=== PATIENT | female | born 1980 | race Caucasian/White ===

== ENCOUNTER 2019-08-30 07:47 | Outpatient (CLI) | payer BC, SELFPAY ==
--- NOTE | 2019-08-30 08:10 | MM_ITS ---
WS: [id number] DIAGNOSTIC BILATERAL DIGITAL MAMMOGRAM WITH CAD Bilateral breast ultrasound, limited HISTORY: FIBROCYSTIC BREAST COMPARISON: None available. TECHNIQUE: Bilateral craniocaudad, mediolateral oblique, and mediolateral views are submitted. Spot c ompression views RIGHT CC and MLO and LEFT MLO. Computer aided detection utilized. Breast composition: There are scattered areas of fibroglandular density. Focal asymmetries in the ant erior upper outer quadrants of each breast. No distortion. Favor these are probably benign asymmetrie s. Ultrasound to follow. Bilateral breast ultrasound, limited. RIGHT breast: Anterior upper outer quadrant is imaged. There are no masses or calcifications or shado wing. LEFT breast: Upper outer quadrant anteriorly. No masses or calcifications or shadowing. MM/[place] [id number] IMPRESSION: BI-RADS: 2-Benign FOLLOW UP: 1 Year Follow-up
--- NOTE | 2019-08-30 09:32 | US_ITS ---
WS: [id number] DIAGNOSTIC BILATERAL DIGITAL MAMMOGRAM WITH CAD Bilateral breast ultrasound, limited HISTORY: FIBROCYSTIC BREAST COMPARISON: None available. TECHNIQUE: Bilateral craniocaudad, mediolateral oblique, and mediolateral views are submitted. Spot c ompression views RIGHT CC and MLO and LEFT MLO. Computer aided detection utilized. Breast composition: There are scattered areas of fibroglandular density. Focal asymmetries in the ant erior upper outer quadrants of each breast. No distortion. Favor these are probably benign asymmetrie s. Ultrasound to follow. Bilateral breast ultrasound, limited. RIGHT breast: Anterior upper outer quadrant is imaged. There are no masses or calcifications or shado wing. LEFT breast: Upper outer quadrant anteriorly. No masses or calcifications or shadowing. US/US breast BI limited* [id number] IMPRESSION: BI-RADS: 2-Benign FOLLOW UP: 1 Year Follow-up
== END 2019-08-30 07:48 | disposition home or self-care (01) ==
LOC: RADSHAW 07:50
PROVIDERS: PCP Nurse Practitioner Family; Visit Provider Nurse Practitioner Family
DX: N60.19 Diffuse cystic mastopathy of unspecified breast (principal)
CPT/HCPCS: 76642; 77066

== ENCOUNTER → 2020-08-04 10:20 | Outpatient (BNVA) | payer BC, SELFPAY | PROVIDERS: PCP Nurse Practitioner Family; Visit Provider Nurse Practitioner Family | DX: J06.9 Acute upper respiratory infection, unspecified (principal); Z20.822 Contact with and (suspected) exposure to COVID-19 | CPT/HCPCS: 87426 ==

== ENCOUNTER → 2022-05-25 09:44 | Outpatient (BNVA) | payer OTHER, SELFPAY | PROVIDERS: PCP Nurse Practitioner Family; Visit Provider Family Medicine | DX: E03.9 Hypothyroidism, unspecified (principal); Z13.6 Encounter for screening for cardiovascular disorders | CPT/HCPCS: 80053; 80061; 84439; 84443; 85025 ==

== ENCOUNTER 2022-09-24 13:15 | Emergency (ER) | payer OTHER, SELFPAY ==
[2022-09-24 13:17] VITALS: BP 165/96; PULSE 81; RESP 16; TEMP 36.7; O2SAT 97; BMI 46.5
--- NOTE | 2022-09-24 13:31 | ECG_ITS ---
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 Measurements Intervals [place] Rate: 76 P: 15 MN: 148 QRS: 0 QRSD: 76 T: -6 QT: 386 QTc: 436 Interpretive Statements SINUS RHYTHM WITH SINUS ARRHYTHMIA LOW QRS VOLTAGE IN PRECORDIAL LEADS [QRS DEFLECTION < 1.0 mV IN CHEST LEADS] ANTEROSEPTAL MYOCARDIAL INFARCTION , OF INDETERMINATE AGE [40+ ms Q WAVE IN V1-V4] No previous ECG available for comparison Electronically Signed On 09-24-2022 15:47:06 CDT by Alfred Dietz M.D. [id number]
--- NOTE | 2022-09-24 13:49 | XR_ITS ---
WS: [id number] PORTABLE CHEST HISTORY: chest pain COMPARISON: None available. Lungs are clear and well expanded. No pleural effusion or pneumothorax. Cardiac size: Normal. Mediastinum/Aorta: Normal mediastinum. No osseous abnormality seen. XR/XR chest 1V portable [id number] IMPRESSION: Unremarkable portable chest.
[2022-09-24 14:38] LABS: Basophils % 0.3 %; Eosinophils # 0.1 10^3/uL (0.0-0.8); Eosinophils % 1.1 %; Hematocrit 49.1 % (37.0-47.0); Hemoglobin 16.6 g/dL (11.5-15.3); Lymphocytes # 1.5 10^3/uL (0.8-4.8); Lymphocytes % 23.3 %; Mean Corpuscular HGB Conc 33.8 g/dL (30.0-36.0); Mean Corpuscular Hemoglobin 33.6 pg (28.0-34.0); Mean Corpuscular Volume 99.4 fl (81-99); Mean Platelet Volume 11.4 fL (7.4-10.4); Monocytes # 0.4 10^3/uL (0.2-0.9); Monocytes % 6.7 %; Neutrophils # 4.37 10^3/uL (1.8-7.7); Neutrophils % 68.3 %; Nucleated Red Blood Cells % 0 %; Platelet Count 222 10^3/cmm (130-400); Red Blood Count 4.94 10^6/uL (4.1-5.3); Red Cell Distribution Width 11.4 % (12.1-15.1); White Blood Count 6.4 10^3/uL (4.0-10.0)
[2022-09-24 14:48] LABS: HCG, Serum Qual Negative (Negative)
[2022-09-24 15:54] LABS: Troponin(5th) Baseline 6 ng/L (0-10)
[2022-09-24 16:25] LABS: Alanine Aminotransferase 26 U/L (0-33); Albumin Level 4.1 g/dL (3.5-5.2); Alkaline Phosphatase 46 U/L (35-105); Anion Gap 18.8 (5-19); Aspartate Amino Transferase 18 U/L (0-32); Blood Urea Nitrogen 15 mg/dL (6-20); Calcium 9.1 mg/dL (8.5-10.5); Carbon Dioxide 19 mmol/L (22-29); Chloride 103 mmol/L (98-107); Globulin 2.7 g/dL (1.3-4.6); Glucose 86 mg/dL (65-115); Osmolality Calculated 284 mOsm/kg (285-295); Potassium 3.8 mmol/L (3.5-5.1); Sodium 137 mmol/L (136-145); Total Bilirubin 0.5 mg/dL (0.15-1.2); Total Protein 6.8 g/dL (6.6-8.7)
--- NOTE | 2022-09-24 17:22 | ECG_ITS ---
[facility] Test Date: 2022-09-24 Pat Name: Joy Reich Department: Room: Gender: Female Fisher: : 1980 Requested By: Mandy Langston Order Number: [id number] Tino MD: Alfred Dietz M.D. Measurements Intervals [place] Rate: 64 P: 21 AR: 147 QRS: 2 QRSD: 88 T: -11 QT: 411 QTc: 425 Interpretive Statements SINUS RHYTHM LOW QRS VOLTAGE IN PRECORDIAL LEADS [QRS DEFLECTION < 1.0 mV IN CHEST LEADS] POSSIBLE RIGHT VENTRICULAR CONDUCTION DELAY [RSR (QR) IN V1/V2] ANTEROSEPTAL MYOCARDIAL INFARCTION , OF INDETERMINATE AGE [40+ ms Q WAVE IN V1-V4] Compared to ECG 09/24/2022 13:31:33 Sinus arrhythmia no longer present Myocardial infarct finding still present Electronically Signed On 09-25-2022 6:03:11 CDT by Alfred Dietz M.D. [id number]
[2022-09-24 17:28] VITALS: BP 168/101; PULSE 72; RESP 19; O2SAT 98
[2022-09-24 17:30] VITALS: PULSE 72; RESP 15; O2SAT 98
--- NOTE | 2022-09-24 17:46 | W.ED.RECABL ---
HPI - Recheck/Abnormal Lab/Rx General: Chief Complaint: Recheck/Abnormal Lab/Rx Stated Complaint: high bp/tight chest/dizzy/warm Time Seen by Provider: 09/24/22 16:21 History of Present Illness: Patient presents to the ER with complaints of left-sided chest pressure. Patient said when she pulled over at the gas station and called 911 EMS took her blood pressure and her systolic was over 200. Patient refused ambulance ride and drove herself to the ER. Patient denies any other symptoms at this time. Patient states she is has had this intermittent pressure a couple times before but it usually goes away on its own. Blood pressure at the time of arrival to the ER was 168/101. Patient states he is recently lost 40 pounds and has had history of blood pressure issues in the past but is not had any recently. Review of Systems General: Reports: 10 or more systems reviewed and unremarkable except in HPI and below PFS ED PFSH: Medical History Acquired hypothyroidism History of kidney stones Surgical History No pertinent past surgical history Family History Father , Accidental . No problems noted. Mother Diabetes Hypertension Grandmother Cancer colon Social History Smoking and tobacco status: never smoked Second hand smoke exposure: No Alcohol intake: former Former alcohol use details: social Substance/Drug Use: never Lives independently: Yes Marital status: Single Number of children: 0 Physical Exam Const: COMMON NORMALS: no acute distress, average body habitus, patient oriented x3, no limitations, healthy appearing, alert and well nourished HENMT: COMMON NORMALS: normocephalic, atraumatic, hearing grossly normal bilaterally, external ears normal, Normal external nose present and moist oral mucous membranes HEAD & SCALP: normocephalic and atraumatic NOSE: Normal external nose present EXTERNAL EAR: Yes external ears normal Eye: COMMON NORMALS: Equal, round and reactive pupils present, EOMs intact bilaterally, conjunctivae normal and no scleral icterus CONJUNCTIVA: Yes conjunctivae normal PUPIL: Yes Equal, round and reactive pupils present Neck/C-Spine: COMMON NORMALS: full ROM, no lymphadenopathy, supple, no meningeal signs, no JVD and Thyroid normal THYROID: Thyroid normal Chest: COMMONS NORMALS: normal inspection of the chest and normal palpation of entire chest wall Resp: COMMON NORMALS: normal respiratory effort, No retractions, No use of accessory muscles and clear to auscultation bilaterally AUSCULTATION: clear to auscultation bilaterally Cardio: COMMON NORMALS: no JVD, regular rate, regular rhythm, S1 normal heart sound present, S2 normal heart sound present, No gallops present (Cardio), No clicks present (Cardio), No murmurs present (Cardio) and No rub (Cardio) RATE: regular rate RHYTHM: regular rhythm HEART SOUNDS: S1 normal heart sound present and S2 normal heart sound present GI: COMMON NORMALS: Normal to inspection, nondistended, normoactive bowel sounds present, Soft to palpation, non-tender, No hepatosplenomegaly present and no masses PALPATION: Yes Soft to palpation and Yes No hepatosplenomegaly present : COMMON NORMALS: Yes no CVA tenderness BLADDER/KIDNEY EXAM: Yes no CVA tenderness Back/Pelvis: COMMON NORMALS: no CVA tenderness Neuro: COMMON NORMALS: patient oriented x3 SENSORIUM/ORIENTATION: Yes alert MENINGEAL SIGNS: Yes no meningeal signs Course Vital Signs: Vital signs: Vital Signs Temperature 98.1 F 09/24/22 13:17 Pulse Rate 79 09/24/22 18:30 Respiratory Rate 16 09/24/22 18:30 Blood Pressure 160/114 09/24/22 18:30 Pulse Oximetry 99 09/24/22 18:30 Oxygen Delivery Me thod Room Air 09/24/22 17:30 MDM - Recheck/Abnormal Lab/Rx Medical Decision Making Presents to the ER with complaints of elevated blood pressure. She said it was over 200 when she checked it but then she refused ambulance ride drove herself to the ER. By time she got here is 168/101. Patient did receive 25 hydralazine 0.1 of clonidine and this dropped her blood pressure to 134/88. Patient will be instructed to keep blood pressure log follow-up with her PCP in the next week and talk about the need for possible blood pressure medicine. Differential Diagnosis Unlikely encounter for medication refill, encounter for wound recheck, encounter for recheck of burn, encounter for removal of sutures or warfarin-induced coagulopathy Medical Records I reviewed the patient's medical records. Lab Data I reviewed the patient's lab results. 09/24/22 14:20 09/24/22 15:21 Radiology Impressions Chest X-Ray 09/24/22 13:49 IMPRESSION: Unremarkable portable chest. Laboratory Results WBC 6.4 10^3/uL (4.0-10.0) 09/24/22 14:20 RBC 4.94 10^6/uL (4.1-5.3) 09/24/22 14:20 Hgb 16.6 g/dL (11.5-15.3) H 09/24/22 14:20 Hct 49.1 % (37.0-47.0) H 09/24/22 14:20 MCV 99.4 fl (81-99) H 09/24/22 14:20 MCH 33.6 pg (28.0-34.0) 09/24/22 14:20 MCHC 33.8 g/dL (30.0-36.0) 09/24/22 14:20 RDW 11.4 % (12.1-15.1) L 09/24/22 14:20 Plt Count 222 10^3/cmm (130-400) 09/24/22 14:20 MPV 11.4 fL (7.4-10.4) H 09/24/22 14:20 Neut % (Auto) 68.3 % 09/24/22 14:20 Lymph % (Auto) 23.3 % 09/24/22 14:20 [place] % (Auto) 6.7 % 09/24/22 14:20 Eos % (Auto) 1.1 % 09/24/22 14:20 Baso % (Auto) 0.3 % 09/24/22 14:20 Neut # (Auto) 4.37 10^3/uL (1.8-7.7) 09/24/22 14:20 Lymph # (Auto) 1.5 10^3/uL (0.8-4.8) 09/24/22 14:20 [place] # (Auto) 0.4 10^3/uL (0.2-0.9) 09/24/22 14:20 Eos # (Auto) 0.1 10^3/uL (0.0-0.8) 09/24/22 14:20 Baso # (Auto) 0.0 10^3/uL (0.0-0.1) 09/24/22 14:20 Nucleated RBC % (auto) 0 % 09/24/22 14:20 Nucleated RBCs # 0.0 /100WBC 09/24/22 14:20 Sodium 137 mmol/L (136-145) 09/24/22 15:21 Potassium 3.8 mmol/L (3.5-5.1) 09/24/22 15:21 Chloride 103 mmol/L (98-107) 09/24/22 15:21 Carbon Dioxide 19 mmol/L (22-29) L 09/24/22 15:21 Anion Gap 18.8 (5-19) 09/24/22 15:21 BUN 15 mg/dL (6-20) 09/24/22 15:21 Creatinine 0.9 mg/dL (0.5-0.9) 09/24/22 15:21 GFR Calculation 69.0 mL/min (90-130) L 09/24/22 15:21 Glucose 86 mg/dL (65-115) 09/24/22 15:21 Calculated Osmolality 284 mOsm/kg (285-295) L 09/24/22 15:21 Calcium 9.1 mg/dL (8.5-10.5) 09/24/22 15:21 Total Bilirubin 0.5 mg/dL (0.15-1.2) 09/24/22 15:21 AST 18 U/L (0-32) 09/24/22 15:21 ALT 26 U/L (0-33) 09/24/22 15:21 Alkaline Phosphatase 46 U/L (35-105) 09/24/22 15:21 Troponin T Baseline 6 ng/L (0-10) 09/24/22 15:21 Troponin T 120 Minute 6.00 ng/L (0-10) 09/24/22 17:42 Delta Troponin T TNP 09/24/22 17:42 Total Protein 6.8 g/dL (6.6-8.7) 09/24/22 15:21 Albumin 4.1 g/dL (3.5-5.2) 09/24/22 15:21 Globulin 2.7 g/dL (1.3-4.6) 09/24/22 15:21 HCG, Qual Negative (Negative) 09/24/22 14:20 EKG Data EKG 1: I personally reviewed and interpreted this EKG as follows: EKG interpretation date: 09/24/22 EKG interpretation time: 17:22 Prior EKG tracings: not available for review Interpretation: EKG shows ventricular rate 64 beats minute, DE interval 147, QRS duration 88, QTc 420, sinus rhythm, possible right ventricular conduction delay, anteroseptal myocardial infarction of indeterminate age with Q waves in V1 through V4. Discharge Plan Discharge Patient Disposition: Home Clinical Impression: HBP (high blood pressure) Qualifiers: Hypertension type: unspecified Qualified Code(s): I10 - Essential (primary) hypertension Condition: Stable Prescriptions: No Action levothyroxine 100 mcg capsule 100 mcg PO DAILY pantoprazole [Protonix] 40 mg tablet,delayed release (DR/EC) 40 mg PO DAILY Qty: 60 0RF ondansetron HCl 4 mg tablet 4 mg PO Q8H 5 Days Qty: 15 0RF norgestimate-ethinyl estradiol [Tri-Sprintec (28)] 0.18/0.215/0.25 mg-35 mcg (28) tablet See Rx Instructions .ROUTE .COMPLEX Qty: 84 0RF Dose Instruction: Take 1 tablet by mouth once daily Rx Instructions: Take 1 tablet by mouth once daily Discharge Orders: Discharge ED (Routine); Ordered 09/24/22 Ordered By: Adebayo Pires Referrals: Lizzette Schulte DO [Primary Care Provider] - 1 week Patient Instructions: Hypertension (ED) Activity Restrictions/Additional Instructions: Keep a blood pressure log at least 1 time a day throughout the day. Please follow-up with your primary care doctor in the next 7 to 10 days and take your log with the to discuss the need for blood pressure medicine. If your blood pressure gets out of control please feel free to follow-up in the ER as needed. Coding Level of Care Code ED Vice President Of Customer Service for Kylie Manrique
[2022-09-24 18:00] VITALS: BP 160/89; BP 168/101; PULSE 76; RESP 24; O2SAT 97
[2022-09-24] MEDS: cloNIDine 0.1 mg Tablet PO (18:00)
[2022-09-24 18:30] VITALS: BP 160/114; PULSE 79; RESP 16; O2SAT 99
[2022-09-24] MEDS: hyDRALAzine 25 mg Tablet PO (18:45)
== END 2022-09-24 19:59 | disposition home or self-care (01) ==
PROVIDERS: Physician Assistant; Emergency Provider Emergency Medicine; PCP Family Medicine
DX: I10 Essential (primary) hypertension (principal)
CPT/HCPCS: 36415; 71045; 80053; 84484; 84703; 85025; 93005; 99285

== ENCOUNTER → 2022-11-08 09:17 | Outpatient (BNVA) | payer OTHER, SELFPAY | PROVIDERS: PCP Family Medicine; Visit Provider Family Medicine | DX: I10 Essential (primary) hypertension (principal); E03.9 Hypothyroidism, unspecified; Z01.419 Encounter for gynecological examination (general) (routine) without abnormal findings | CPT/HCPCS: 80053; 80061; 84439; 84443; 85025; 87624 ==

== ENCOUNTER 2022-11-26 07:25 | Outpatient (CLI) | payer OTHER, SELFPAY ==
--- NOTE | 2022-11-26 07:39 | MM_ITS ---
WS: [id number] SCREENING DIGITAL TOMOSYNTHESIS MAMMOGRAM WITH CAD HISTORY: screening mammogram COMPARISON: 08/30/2019 Bilateral CC and MLO with tomosynthesis views submitted. Synthetic mammography reviewed. Computer aid ed detection analyzed. Breast composition: There are scattered areas of fibroglandular density. No suspicious masses, microc alcifications or architectural distortion. IMPRESSION: MM/[place] [id number] BI-RADS: 1-Negative FOLLOW UP: 1 Year Follow-up
== END 2022-11-26 07:26 | disposition home or self-care (01) ==
LOC: RAD 07:26 → MOBLMAM 07:38
PROVIDERS: PCP Family Medicine; Visit Provider Family Medicine
DX: Z12.31 Encounter for screening mammogram for malignant neoplasm of breast (principal)
CPT/HCPCS: 77063; 77067

== ENCOUNTER → 2022-12-17 08:58 | Outpatient (BNVA) | payer OTHER, SELFPAY | PROVIDERS: PCP Family Medicine; Visit Provider Family Medicine | DX: E03.9 Hypothyroidism, unspecified (principal) | CPT/HCPCS: 84439; 84443 ==

== ENCOUNTER 2023-01-30 21:17 | Emergency (ER) | payer OTHER, SELFPAY ==
[2023-01-30 21:25] VITALS: BP 141/86; PULSE 99; RESP 18; TEMP 36.8; O2SAT 99; BMI 47.4
[2023-01-30 22:02] VITALS: BP 177/104; PULSE 90; O2SAT 100
--- NOTE | 2023-01-30 22:11 | ED_ITS ---
Documented by User: Adebayo Pires DO 01/30/23 23:09 HPI - General Adult General: Chief complaint: General Medical Stated complaint: About to Pass out\BP High Time Seen by Provider: 01/30/23 22:08 History of Present Illness: Patient presents to the ER with complaints of high blood pressure and making her head feel swimmy. Patient stated at home she noticed that she was feeling a little strange and she checked her blood pressure and it was approximately 167/109. Patient does take losartan 25 mg daily and patient decided to take another losartan 25 mg approximately 1 hour ago. She said this did not seem to do anything to for her blood pressure then she decided to come in and be checked out in the ER. Patient denies any chest pain, nausea, vomiting, diarrhea, shortness of breath etc. Review of Systems General: Reports: 10 or more systems reviewed and unremarkable except in HPI and below PFSH ED PFSH: Medical History Acquired hypothyroidism History of kidney stones Surgical History No pertinent past surgical history Family History Father , Accidental . No problems noted. Mother Diabetes Hypertension Grandmother Cancer colon Social History Smoking and tobacco/nicotine status: never used tobacco/nicotine Second hand smoke exposure: No Alcohol intake: former Former alcohol use details: social Substance/Drug Use: never Lives independently: Yes Marital status: Single Number of children: 0 Physical Exam Const: COMMON NORMALS: no acute distress, average body habitus, patient oriented x3, no limitations, healthy appearing, alert and well nourished HENMT: COMMON NORMALS: normocephalic, atraumatic, hearing grossly normal bilaterally, external ears normal, Normal external nose present, moist oral mucous membranes and oropharynx normal HEAD & SCALP: normocephalic and atraumatic NOSE: Normal external nose present EXTERNAL EAR: Yes external ears normal Eye: COMMON NORMALS: Equal, round and reactive pupils present, EOMs intact bilaterally, conjunctivae normal and no scleral icterus CONJUNCTIVA: Yes conjunctivae normal PUPIL: Yes Equal, round and reactive pupils present Neck/C-Spine: COMMON NORMALS: no JVD Chest: COMMONS NORMALS: normal inspection of the chest and normal palpation of entire chest wall Resp: COMMON NORMALS: normal respiratory effort, No retractions, No use of accessory muscles and clear to auscultation bilaterally AUSCULTATION: clear t o auscultation bilaterally Cardio: COMMON NORMALS: no JVD, regular rate, regular rhythm, S1 normal heart sound present, S2 normal heart sound present, No gallops present (Cardio), No clicks present (Cardio), No murmurs present (Cardio) and No rub (Cardio) RATE: regular rate RHYTHM: regular rhythm HEART SOUNDS: S1 normal heart sound present and S2 normal heart sound present GI: COMMON NORMALS: Normal to inspection, nondistended, normoactive bowel sounds present, Soft to palpation, No hepatosplenomegaly present and no masses PALPATION: Yes Soft to palpation and Yes No hepatosplenomegaly present Neuro: COMMON NORMALS: patient oriented x3 SENSORIUM/ORIENTATION: Yes alert Course Vital Signs: Vital signs: Vital Signs Temperature 98.3 F 01/30/23 21:25 Pulse Rate 88 01/30/23 23:19 Respiratory Rate 18 01/30/23 21:25 Blood Pressure 127/89 01/30/23 23:19 Pulse Oximetry 98 01/30/23 23:19 Oxygen Delivery Me thod Room Air 01/30/23 23:19 MDM - General Adult Differential Diagnosis Hypertension Medical Records I reviewed the patient's medical records. Lab Data I reviewed the patient's lab results. 01/30/23 22:23 01/30/23 22: Laboratory Results WBC 8.06 10^3/uL (3.29-11.43) 01/30/23 22: RBC 4.54 10^6/uL (3.85-5.65) 01/30/23 22: Hgb 15.20 g/dL (11.27-16.99) 01/30/23 22: Hct 45.3 % (36-47) 01/30/23 22: MCV 99.8 fl (85-98) H 01/30/23 22: MCH 33.5 pg (27-33) H 01/30/23: MCHC 33.6 g/dL (30-55) 01/30/23 22: RDW 11.5 % (12.1-15.1) L 01/30/23 22: Plt Count 197 10^3/cmm (157-399) 01/30/23 22: MPV 9.4 fL (7.4-10.4) 01/30/23 22: Neut % (Auto) 69.4 % 01/30/23 22: Lymph % (Auto) 20.7 % 01/30/23 22: [place] % (Auto) 7.6 % 01/30/23 22: Eos % (Auto) 1.7 % 01/30/23 22: Baso % (Auto) 0.4 % 01/30/23 22: Neut # (Auto) 5.59 10^3/uL (1.8-7.7) 01/30/23 22: Lymph # (Auto) 1.7 10^3/uL (0.8-4.8) 01/30/23 22: [place] # (Auto) 0.6 10^3/uL (0.2-0.9) 01/30/23 22: Eos # (Auto) 0.1 10^3/uL (0.0-0.8) 01/30/23 22: Baso # (Auto) 0.0 10^3/uL (0.0-0.1) 01/30/23 22: Nucleated RBC % (auto) 0 % 01/30/23 22: Nucleated RBCs # 0.0 /100WBC 01/30/23 22: Sodium 140 mmol/L (136-145) 01/30/23 22: Potassium 3.7 mmol/L (3.5-5.1) 01/30/23 22: Chloride 106 mmol/L (98-107) 01/30/23 22: Carbon Dioxide 24 mmol/L (22-29) 01/30/23 22: Anion Gap 13.7 (5-19) 01/30/23 22:23 BUN 12 mg/dL (6-20) 01/30/23 22: Creatinine 0.8 mg/dL (0.5-0.9) 01/30/23 22: GFR Calculation 79.0 mL/min (90-130) L 01/30/23 22:23 Glucose 119 mg/dL (65-115) H 01/30/23 22:23 Calculated Osmolality 291 mOsm/kg (285-295) 01/30/23 22: Calcium 8.9 mg/dL (8.5-10.5) 01/30/23 22: Total Bilirubin 0.2 mg/dL (0.15-1.2) 01/30/23 22:23 AST 20 U/L (0-32) 01/30/23 22: ALT 28 U/L (0-33) 01/30/23 22: Alkaline Phosphatase 57 U/L (35-105) 01/30/23 22: Total Protein 6.8 g/dL (6.6-8.7) 01/30/23 22: Albumin 3.9 g/dL (3.5-5.2) 01/30/23 22: Globulin 2.9 g/dL (1.3-4.6) 01/30/23 22: TSH 5.21 uIU/mL (0.27-4.20) H 01/30/23 22:23 No radiology studies performed this visit EKG Data EKG 1: I personally reviewed and interpreted this EKG as follows: EKG interpretation date: 01/30/23 EKG interpretation time: 22:20 Prior EKG tracings: not available for review Interpretation: EKG showed ventricular rate 92 bpm, SC interval 149, QRS duration 81, sinus rhythm, Discharge Plan Discharge Patient Disposition: Home Clinical Impression: Hypertension Condition: Stable Prescriptions: No Action losartan 25 mg tablet 25 mg PO DAILY Qty: 90 1RF norgestimate-ethinyl estradiol [Tri-Sprintec (28)] 0.18/0.215/0.25 mg-35 mcg (28) tablet See Rx Instructions .ROUTE .COMPLEX Qty: 84 3RF Dose Instruction: Take 1 tablet by mouth once daily Rx Instructions: Take 1 tablet by mouth once daily levothyroxine 50 mcg tablet 50 mcg PO DAILY Qty: 30 1RF atorvastatin 20 mg tablet 20 mg PO .at bedtime Qty: 90 0RF Discharge Orders: Discharge ED (Routine); Ordered 01/30/23 Ordered By: Silvano Lr Referrals: Lizzette Schulte DO [Primary Care Provider] - 1-3 days Patient Instructions: Hypertension (ED) Activity Restrictions/Additional Instructions: Check your blood pressures twice daily at home. Report numbers to your doctor this week. If you notice that numbers are staying above 150/90, you may take an extra dose of your blood pressure medication as you did this evening. Return for worsening headache, lethargy, weakness, speech or language problems, vision problems, chest pain, any other concerning symptoms. Coding Level of Care Code ED Certified Orthotic Fitter for Chg Fwd Documented by User: Silvano Lr DO 01/30/23 23:53 HPI - General Adult General: Chief complaint: General Medical Stated complaint: About to Pass out\BP High Time Seen by Provider: 01/30/23 22:08 [facility] ED PFSH: Medical History Acquired hypothyroidism History of kidney stones Surgical History No pertinent past surgical history Family History Father , Accidental . No problems noted. Mother Diabetes Hypertension Grandmother Cancer colon Social History Smoking and tobacco/nicotine status: never used tobacco/nicotine Second hand smoke exposure: No Alcohol intake: former Former alcohol use details: social Substance/Drug Use: never Lives independently: Yes Marital status: Single Number of children: 0 Course Vital Signs: Vital signs: Vital Signs Temperature 98.3 F 01/30/23 21:25 Pulse Rate 88 01/30/23 23:19 Respiratory Rate 18 01/30/23 21:25 Blood Pressure 127/89 01/30/23 23:19 Pulse Oximetry 98 01/30/23 23:19 Oxygen Delivery Me thod Room Air 01/30/23 23:19 MDM - General Adult Medical Decision Making 42-year-old female received in checkout at shift change. This patient was feeling a bit dizzy and had a swimmy head. This is improved now after improvement in her blood pressure. She was given 0.1 mg of clonidine on top of the extra blood pressure medication she Took at home. Her CBC is normal. BMP is not remarkable. Her TSH is minimally elevated, EKG is listed below. With improvement in her symptoms she will be allowed home. She did not have any chest pain. Lab Data 01/30/23 22:01/30/23: Laboratory Results WBC 8.06 10^3/uL (3.29-11.43) 01/30/23: RBC 4.54 10^6/uL (3.85-5.65) 01/30/23: Hgb 15.20 g/dL (11.27-16.99) 01/30/23: Hct 45.3 % (36-47) 01/30/23: MCV 99.8 fl (85-98) H 01/30/23: MCH 33.5 pg (27-33) H 01/30/23: MCHC 33.6 g/dL (30-55) 01/30/23: RDW 11.5 % (12.1-15.1) L 01/30/23: Plt Count 197 10^3/cmm (157-399) 01/30/23: MPV 9.4 fL (7.4-10.4) 01/30/23: Neut % (Auto) 69.4 % 01/30/23: Lymph % (Auto) 20.7 % 01/30/23: [place] % (Auto) 7.6 % 01/30/23: Eos % (Auto) 1.7 % 01/30/23: Baso % (Auto) 0.4 % 01/30/23: Neut # (Auto) 5.59 10^3/uL (1.8-7.7) 01/30/23: Lymph # (Auto) 1.7 10^3/uL (0.8-4.8) 01/30/23: [place] # (Auto) 0.6 10^3/uL (0.2-0.9) 01/30/23 22:23 Eos # (Auto) 0.1 10^3/uL (0.0-0.8) 01/30/23 22: Baso # (Auto) 0.0 10^3/uL (0.0-0.1) 01/30/23 22:23 Nucleated RBC % (auto) 0 % 01/30/23 22: Nucleated RBCs # 0.0 /100WBC 01/30/23 22:23 Sodium 140 mmol/L (136-145) 01/30/23 22: Potassium 3.7 mmol/L (3.5-5.1) 01/30/23 22: Chloride 106 mmol/L (98-107) 01/30/23 22: Carbon Dioxide 24 mmol/L (22-29) 01/30/23 22: Anion Gap 13.7 (5-19) 01/30/23 22: BUN 12 mg/dL (6-20) 01/30/23 22: Creatinine 0.8 mg/dL (0.5-0.9) 01/30/23 22: GFR Calculation 79.0 mL/min (90-130) L 01/30/23 22: Glucose 119 mg/dL (65-115) H 01/30/23 22: Calculated Osmolality 291 mOsm/kg (285-295) 01/30/23 22: Calcium 8.9 mg/dL (8.5-10.5) 01/30/23 22: Total Bilirubin 0.2 mg/dL (0.15-1.2) 01/30/23 22: AST 20 U/L (0-32) 01/30/23 22: ALT 28 U/L (0-33) 01/30/23 22: Alkaline Phosphatase 57 U/L (35-105) 01/30/23 22: Total Protein 6.8 g/dL (6.6-8.7) 01/30/23 22: Albumin 3.9 g/dL (3.5-5.2) 01/30/23 22: Globulin 2.9 g/dL (1.3-4.6) 01/30/23 22: TSH 5.21 uIU/mL (0.27-4.20) H 01/30/23 22:23 Discharge Plan Discharge Patient Disposition: Home Clinical Impression: Hypertension Condition: Stable Prescriptions: No Action losartan 25 mg tablet 25 mg PO DAILY Qty: 90 1RF norgestimate-ethinyl estradiol [Tri-Sprintec (28)] 0.18/0.215/0.25 mg-35 mcg (28) tablet See Rx Instructions .ROUTE .COMPLEX Qty: 84 3RF Dose Instruction: Take 1 tablet by mouth once daily Rx Instructions: Take 1 tablet by mouth once daily levothyroxine 50 mcg tablet 50 mcg PO DAILY Qty: 30 1RF atorvastatin 20 mg tablet 20 mg PO .at bedtime Qty: 90 0RF Discharge Orders: Discharge ED (Routine); Ordered 01/30/23 Ordered By: Silvano Lr Referrals: Lizzette Schulte DO [Primary Care Provider] - 1-3 days Patient Instructions: Hypertension (ED) Activity Restrictions/Additional Instructions: Check your blood pressures twice daily at home. Report numbers to your doctor this week. If you notice that numbers are staying above 150/90, you may take an extra dose of your blood pressure medication as you did this evening. Return for worsening headache, lethargy, weakness, speech or language problems, vision problems, chest pain, any other concerning symptoms. Coding Level of Care Code ED Certified Orthotic Fitter for Kylie Manrique
--- NOTE | 2023-01-30 22:20 | ECG_ITS ---
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 Measurements Intervals [place] Rate: 92 P: 25 NH: 149 QRS: 7 QRSD: 81 T: 16 QT: 361 QTc: 447 Interpretive Statements SINUS RHYTHM LOW QRS VOLTAGE IN PRECORDIAL LEADS [QRS DEFLECTION < 1.0 mV IN CHEST LEADS] SEPTAL MYOCARDIAL INFARCTION , PROBABLY OLD [40+ ms Q WAVE IN V1/V2] Compared to ECG 09/24/2022 17:22:59 No significant changes Electronically Signed On 01-30-2023 22:31:12 STONE OPERATOR by Lyndsey Villafuerte M.D. [email or web address] medical [email or web address].[email or web address]/store/OM/[id number]
[2023-01-30 22:35] LABS: Basophils % 0.4 %; Eosinophils # 0.1 10^3/uL (0.0-0.8); Eosinophils % 1.7 %; Hematocrit 45.3 % (36-47); Lymphocytes # 1.7 10^3/uL (0.8-4.8); Lymphocytes % 20.7 %; Mean Corpuscular HGB Conc 33.6 g/dL (30-55); Mean Corpuscular Hemoglobin 33.5 pg (27-33); Mean Corpuscular Volume 99.8 fl (85-98); Mean Platelet Volume 9.4 fL (7.4-10.4); Monocytes # 0.6 10^3/uL (0.2-0.9); Monocytes % 7.6 %; Neutrophils # 5.59 10^3/uL (1.8-7.7); Neutrophils % 69.4 %; Nucleated Red Blood Cells % 0 %; Platelet Count 197 10^3/cmm (157-399); Red Blood Count 4.54 10^6/uL (3.85-5.65); Red Cell Distribution Width 11.5 % (12.1-15.1); White Blood Count 8.06 10^3/uL (3.29-11.43)
[2023-01-30 22:38] VITALS: BP 153/98
[2023-01-30] MEDS: cloNIDine 0.1 mg Tablet PO (22:38)
[2023-01-30 22:55] LABS: Alanine Aminotransferase 28 U/L (0-33); Albumin Level 3.9 g/dL (3.5-5.2); Alkaline Phosphatase 57 U/L (35-105); Anion Gap 13.7 (5-19); Aspartate Amino Transferase 20 U/L (0-32); Blood Urea Nitrogen 12 mg/dL (6-20); Calcium 8.9 mg/dL (8.5-10.5); Carbon Dioxide 24 mmol/L (22-29); Chloride 106 mmol/L (98-107); Globulin 2.9 g/dL (1.3-4.6); Glucose 119 mg/dL (65-115); Osmolality Calculated 291 mOsm/kg (285-295); Potassium 3.7 mmol/L (3.5-5.1); Sodium 140 mmol/L (136-145); Total Bilirubin 0.2 mg/dL (0.15-1.2); Total Protein 6.8 g/dL (6.6-8.7)
[2023-01-30 23:19] VITALS: BP 127/89; PULSE 88; O2SAT 98
--- NOTE | 2023-01-30 23:29 | XRR_ITS ---
PROCEDURE INFORMATION: Exam: XR Chest Exam date and time: 01/30/2023 11:40 PM Age: 42 years old Clinical indication: Other: Dizziness/hypertension; Patient HX: Dizziness with hypertension; Additional info: Dizzy HTN TECHNIQUE: Imaging protocol: Radiologic exam of the chest. Views: 1 view. COMPARISON: CR XR chest 1V portable [id number] 09/24/2022 2:25 PM FINDINGS: Lungs: Unremarkable. No consolidation. Pleural spaces: Unremarkable. No pleural effusion. No pneumothorax. Heart/Mediastinum: Unremarkable. No cardiomegaly. Bones/joints: Unremarkable. XR/XR chest 1V portable [id number] IMPRESSION: No acute findings.
[2023-01-30 23:32] LABS: Thyroid Stimulating Hormone 5.21 uIU/mL (0.27-4.20)
[2023-01-31 00:04] VITALS: BP 153/75; PULSE 97; RESP 16; O2SAT 96
== END 2023-01-31 00:06 | disposition home or self-care (01) ==
PROVIDERS: Emergency Medicine; Emergency Provider Emergency Medicine; PCP Family Medicine
DX: I10 Essential (primary) hypertension (principal)
CPT/HCPCS: 71045; 80053; 84443; 85025; 93005; 99285

== ENCOUNTER 2023-02-04 11:41 | Outpatient (CLI) | payer OTHER, SELFPAY ==
--- NOTE | 2023-02-04 | ECG_ITS ---
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 Interpretive Statements NAME OF STUDY: TREADMILL STRESS TEST INDICATION: Dizziness PROCEDURE: At the baseline, the patient's blood pressure was 150/95 with a heart rate of 88. The baseline electrocardiogram showed normal sinus rhythm poor R wave progression. Nonspecific ST-T changes in the anterolateral and inferior leads. The patient exercised for 6 minutes and 12 seconds on a standard Jasmeet protocol. Patient attained a maximum heart rate of 169 beats per minute(94% of the maximum predicted heart rate) with a blood pressure at the peak exercise of 171/86 mm Hg. The EKG at the peak exercise revealed nonspecific ST changes. Patient did not have any chest pain or any significant cardiac arrhythmias with the exercise During the recovery phase, there were no new changes. Blood pressure at the end of the recovery phase was 151/79 mm Hg with a heart rate of 107 per minute. CONCLUSION: 1. Nonspecific EKG changes with the treadmill exercise 2. No exercise-induced chest pain or cardiac arrhythmia 3. Fair exercise tolerance, attained a maximum of 10.2 METs; Max VO2 35.7 Electronically Signed On 02-05-2023 13:10:53 BEAUTY THERAPIST by Adrián De La Rosa M.D. [id number]
[2023-02-04 12:44] VITALS: BMI 46.5
[2023-02-04 13:33] VITALS: BP 143/82; PULSE 102
== END 2023-02-04 11:42 | disposition home or self-care (01) ==
LOC: CDL 11:42
PROVIDERS: PCP Family Medicine; Visit Provider Family Medicine
DX: I10 Essential (primary) hypertension (principal)
CPT/HCPCS: 93017

== ENCOUNTER → 2023-02-07 08:45 | Outpatient (BNVA) | payer OTHER, SELFPAY | PROVIDERS: PCP Family Medicine; Visit Provider Obstetrics & Gynecology | DX: Z01.818 Encounter for other preprocedural examination (principal); R87.619 Unspecified abnormal cytological findings in specimens from cervix uteri | CPT/HCPCS: 81025; 88305 ==

== ENCOUNTER 2023-02-25 19:19 | Emergency (ER) | payer OTHER, SELFPAY ==
--- NOTE | 2023-02-25 19:26 | ECG_ITS ---
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 Measurements Intervals [place] Rate: 71 P: 23 ID: [id number] QRS: -1 QRSD: 81 T: 4 QT: 407 QTc: 444 Interpretive Statements SINUS RHYTHM LOW QRS VOLTAGE IN PRECORDIAL LEADS [QRS DEFLECTION < 1.0 mV IN CHEST LEADS] POSSIBLE RIGHT VENTRICULAR CONDUCTION DELAY [RSR (QR) IN V1/V2] ANTEROSEPTAL MYOCARDIAL INFARCTION , OF INDETERMINATE AGE [40+ ms Q WAVE IN V1-V4] Compared to ECG 01/30/2023 22:20:01 No significant changes Electronically Signed On 02-26-2023 5:56:05 PAYROLL AND BENEFITS ASSISTANT by Lyndsey Villafuerte M.D. [id number] f
[2023-02-25 19:29] VITALS: BP 143/85; PULSE 69; RESP 17; TEMP 36.6; O2SAT 99; BMI 46.3
--- NOTE | 2023-02-25 19:33 | XRR_ITS ---
PROCEDURE INFORMATION: Exam: XR Chest Exam date and time: 02/25/2023 7:56 PM Age: 42 years old Clinical indication: Angina pectoris; Patient HX: Chest pain; HTN; SOB TECHNIQUE: Imaging protocol: Radiologic exam of the chest. Views: 1 view. COMPARISON: CR (CHEST, ) 01/30/2023 11:40 PM FINDINGS: Lungs: Unremarkable. No consolidation. Pleural spaces: Unremarkable. No pleural effusion. No pneumothorax. Heart/Mediastinum: Unremarkable. No cardiomegaly. Bones/joints: Unremarkable. XR/XR chest 1V portable [id number] IMPRESSION: Unremarkable
[2023-02-25 20:17] LABS: Basophils % 0.3 %; Eosinophils # 0.1 10^3/uL (0.0-0.8); Eosinophils % 1.4 %; Hematocrit 44.2 % (36-47); Lymphocytes # 1.8 10^3/uL (0.8-4.8); Lymphocytes % 24.8 %; Mean Corpuscular HGB Conc 32.6 g/dL (30-55); Mean Corpuscular Hemoglobin 32.7 pg (27-33); Mean Corpuscular Volume 100.2 fl (85-98); Mean Platelet Volume 10.8 fL (7.4-10.4); Monocytes # 0.5 10^3/uL (0.2-0.9); Neutrophils # 4.73 10^3/uL (1.8-7.7); Neutrophils % 66.2 %; Nucleated Red Blood Cells % 0 %; Platelet Count 183 10^3/cmm (157-399); Red Blood Count 4.41 10^6/uL (3.85-5.65); Red Cell Distribution Width 11.1 % (12.1-15.1); White Blood Count 7.14 10^3/uL (3.29-11.43)
[2023-02-25 20:20] LABS: Troponin(5th) Baseline < 6 ng/L (0-10)
[2023-02-25 20:25] LABS: Alanine Aminotransferase 25 U/L (0-33); Alkaline Phosphatase 68 U/L (35-105); Aspartate Amino Transferase 23 U/L (0-32); Blood Urea Nitrogen 12 mg/dL (6-20); Carbon Dioxide 19 mmol/L (22-29); Chloride 106 mmol/L (98-107); Globulin 2.6 g/dL (1.3-4.6); Glomerular Filtration Rate 92.2 mL/min (90-130); Glucose 110 mg/dL (65-115); Osmolality Calculated 286 mOsm/kg (285-295); Sodium 138 mmol/L (136-145); Total Bilirubin 0.3 mg/dL (0.15-1.2); Total Protein 6.6 g/dL (6.6-8.7)
[2023-02-25 20:34] LABS: Anion Gap 17.1 (5-19); Potassium 4.1 mmol/L (3.5-5.1)
[2023-02-25 20:40] LABS: Slide Review Slide Review Perform
--- NOTE | 2023-02-25 21:50 | ECG_ITS ---
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 Measurements Intervals [place] Rate: 69 P: 18 UT: 151 QRS: -1 QRSD: 77 T: 13 QT: 411 QTc: 441 Interpretive Statements SINUS RHYTHM LOW QRS VOLTAGE IN PRECORDIAL LEADS [QRS DEFLECTION < 1.0 mV IN CHEST LEADS] POSSIBLE RIGHT VENTRICULAR CONDUCTION DELAY [RSR (QR) IN V1/V2] ANTEROSEPTAL MYOCARDIAL INFARCTION , PROBABLY OLD [40+ ms Q WAVE IN V1-V4] Compared to ECG 02/25/2023 19:26:20 No significant changes Electronically Signed On 02-26-2023 6:08:34 REAR ADMIRAL by Lyndsey Villafuerte M.D. [email or web address] ([email or web address])[email or web address].Viraliti/store/OM/[id number]
[2023-02-25 22:23] LABS: Troponin 5 2HR Delta 0.00001 ABS# (0-10)
[2023-02-25 23:18] VITALS: BP 150/88; PULSE 78; RESP 18; O2SAT 97
--- NOTE | 2023-02-25 23:44 | ED_ITS ---
HPI - Chest Pain 2 General: Chief Complaint: Chest Pain Stated Complaint: cp Time Seen by Provider: 02/25/23 23:12 History of Present Illness: Patient presents to the ER with complaints of chest pressure and numbness all over starting about 5 PM tonight. Patient states that her blood pressure started getting high about that time it was up to 160/100. Patient does have some as needed clonidine she took. She took 1 dose and her blood pressure did not come down and the feelings never changed. Patient waited around until she eventually came to the ER to be further evaluated and worked up. MD complaint: chest heaviness Onset (ago): hour(s) Timing of current episode: constant (But improving) Prior episodes: Yes Onset: during rest Pain location: right chest Pain radiation: none Severity: mild Quality: tightness Relieving factors: nothing Exacerbating factors: nothing Associated symptoms: Reports no associated symptoms Review of Systems 2 General: Reports: 10 or more systems reviewed and unremarkable except in HPI and below PFSH ED 2 PFSH: Medical History History of kidney stones Acquired hypothyroidism Surgical History No pertinent past surgical history Family History Father , Accidental . No problems noted. Mother Diabetes Hypertension Grandmother Cancer colon Denies family history of Colon cancer Ovarian cancer Thyroid cancer Heart disease Hyperlipidemia Breast cancer Uterine cancer Stroke Social History Smoking and tobacco/nicotine status: never used tobacco/nicotine Second hand smoke exposure: No Alcohol intake: former Former alcohol use details: social Substance/Drug Use: never Lives independently: Yes Marital status: Single Number of children: 0 Physical Exam 2 Const: COMMON NORMALS: no acute distress, average body habitus, patient oriented x3, no limitations, healthy appearing, alert and well nourished HENMT: COMMON NORMALS: normocephalic, atraumatic, hearing grossly normal bilaterally, external ears normal, Normal external nose present, moist oral mucous membranes and oropharynx normal HEAD & SCALP: normocephalic and atraumatic NOSE: Normal external nose present EXTERNAL EAR: Yes external ears normal Eye: COMMON NORMALS: Equal, round and reactive pupils present, EOMs intact bilaterally, conjunctivae normal and no scleral icterus CONJUNCTIVA: Yes conjunctivae normal PUPIL: Yes Equal, round and reactive pupils present Neck/C-Spine: COMMON NORMALS: full ROM, no lymphadenopathy, supple, no meningeal signs and no JVD Chest: COMMONS NORMALS: normal inspection of the chest and normal palpation of entire chest wall Resp: COMMON NORMALS: normal respiratory effort, No retractions, No use of accessory muscles and clear to auscultation bilaterally AUSCULTATION: clear to auscultation bilaterally Cardio: COMMON NORMALS: no JVD, regular rate, regular rhythm, S1 normal heart sound present, S2 normal heart sound present, No gallops present (Cardio), No clicks present (Cardio), No murmurs present (Cardio) and No rub (Cardio) R ATE: regular rate RHYTHM: regular rhythm HEART SOUNDS: S1 normal heart sound present and S2 normal heart sound present GI: COMMON NORMALS: Normal to inspection, nondistended, normoactive bowel sounds present, Soft to palpation, non-tender, No hepatosplenomegaly present and no masses PALPATION: Yes Soft to palpation and Yes No hepatosplenomegaly present Neuro: COMMON NORMALS: patient oriented x3 SENSORIUM/ORIENTATION: Yes alert MENINGEAL SIGNS: Yes no meningeal signs Course 2 Vital Signs: Vital signs: Vital Signs Temperature 98 F 02/25/23 19:29 Pulse Rate 78 02/25/23 23:18 Respiratory Rate 18 02/25/23 23:18 Blood Pressure 150/88 02/25/23 23:18 Pulse Oximetry 97 02/25/23 23:18 Oxygen Delivery Me thod Room Air 02/25/23 23:18 MDM - Chest Pain Medical Decision Making Patient presents to the ER with complaints of chest pressure and high blood pressure unresponsive to her clonidine as needed dose. Patient was worked up in a standard cardiac fashion with serial EKGs, serial labs including troponins and chest x-ray. All of which was essentially negative. Patient was given 1 extra dose of clonidine in the ER which did help her blood pressure. Patient will be discharged home with a diagnosis of hypertension and atypical chest pain. Patient is to follow-up with her PCP on an as-needed basis within the next 7 to 10 days. Or return to the ER. Differential Diagnosis Unlikely acute massive pulmonary embolism, acute respiratory failure, acute myocardial infarction, cardiac arrest or sudden cardiac Lab Data 02/25/23 19:55 02/25/23 19:55 Radiology Impressions Chest X-Ray 02/25/23 19:33 IMPRESSION: Unremarkable Laboratory Results WBC 7.14 10^3/uL (3.29-11.43) 02/25/23 19:55 RBC 4.41 10^6/uL (3.85-5.65) 02/25/23 19:55 Hgb 14.40 g/dL (11.27-16.99) 02/25/23 19:55 Hct 44.2 % (36-47) 02/25/23 19:55 MCV 100.2 fl (85-98) H 02/25/23 19:55 MCH 32.7 pg (27-33) 02/25/23 19:55 MCHC 32.6 g/dL (30-55) 02/25/23 19:55 RDW 11.1 % (12.1-15.1) L 02/25/23 19:55 Plt Count 183 10^3/cmm (157-399) 02/25/23 19:55 MPV 10.8 fL (7.4-10.4) H 02/25/23 19:55 Neut % (Auto) 66.2 % 02/25/23 19:55 Lymph % (Auto) 24.8 % 02/25/23 19:55 [place] % (Auto) 7.0 % 02/25/23 19:55 Eos % (Auto) 1.4 % 02/25/23 19:55 Baso % (Auto) 0.3 % 02/25/23 19:55 Neut # (Auto) 4.73 10^3/uL (1.8-7.7) 02/25/23 19:55 Lymph # (Auto) 1.8 10^3/uL (0.8-4.8) 02/25/23 19:55 [place] # (Auto) 0.5 10^3/uL (0.2-0.9) 02/25/23 19:55 Eos # (Auto) 0.1 10^3/uL (0.0-0.8) 02/25/23 19:55 Baso # (Auto) 0.0 10^3/uL (0.0-0.1) 02/25/23 19:55 Nucleated RBC % (auto) 0 % 02/25/23 19:55 Nucleated RBCs # 0.0 /100WBC 02/25/23 19:55 Sodium 138 mmol/L (136-145) 02/25/23 19:55 Potassium 4.1 mmol/L (3.5-5.1) 02/25/23 19:55 Chloride 106 mmol/L (98-107) 02/25/23 19:55 Carbon Dioxide 19 mmol/L (22-29) L 02/25/23 19:55 Anion Gap 17.1 (5-19) 02/25/23 19:55 BUN 12 mg/dL (6-20) 02/25/23 19:55 Creatinine 0.7 mg/dL (0.5-0.9) 02/25/23 19:55 GFR Calculation 92.2 mL/min (90-130) 02/25/23 19:55 Glucose 110 mg/dL (65-115) 02/25/23 19:55 Calculated Osmolality 286 mOsm/kg (285-295) 02/25/23 19:55 Calcium 9.0 mg/dL (8.5-10.5) 02/25/23 19:55 Total Bilirubin 0.3 mg/dL (0.15-1.2) 02/25/23 19:55 AST 23 U/L (0-32) 02/25/23 19:55 ALT 25 U/L (0-33) 02/25/23 19:55 Alkaline Phosphatase 68 U/L (35-105) 02/25/23 19:55 Troponin T Baseline < 6 ng/L (0-10) 02/25/23 19:55 Troponin T 120 Minute 6.00 ng/L (0-10) 02/25/23 21:55 Delta Troponin T [id number] ABS# (0-10) 02/25/23 21:55 Total Protein 6.6 g/dL (6.6-8.7) 02/25/23 19:55 Albumin 4.0 g/dL (3.5-5.2) 02/25/23 19:55 Globulin 2.6 g/dL (1.3-4.6) 02/25/23 19:55 All radiology interpretation(s) finalized by discharge EKG Data EKG 1: I personally reviewed and interpreted this EKG as follows: EKG interpretation date: 02/25/23 EKG interpretation time: 19:26 Prior EKG tracings: not available for review Interpretation: EKG showed ventricular rate of 71 beats minute, [place] interval 149, QRS 81, QTc of 444, sinus rhythm EKG 2: I personally reviewed and interpreted this EKG as follows: EKG interpretation date: 02/25/23 EKG interpretation time: 21:50 Prior EKG tracings: available for review Interpretation: EKG shows ventricular rate 69 beats minute, [place] interval 151, QRS 77, QTc of 441, sinus rhythm Discharge Plan Discharge Patient Disposition: Home Clinical Impression: Benign essential HTN, Atypical chest pain Condition: Stable Prescriptions: No Action sertraline [Zoloft] 50 mg tablet 50 mg PO DAILY Qty: 30 0RF levothyroxine 75 mcg tablet 75 mcg PO DAILY Qty: 30 1RF clonidine HCl 0.1 mg tablet 0.1 mg PO Q8H Qty: 30 0RF Rx Instructions: For BP > 160/100 norgestimate-ethinyl estradiol [Tri-Sprintec (28)] 0.18/0.215/0.25 mg-35 mcg (28) tablet See Rx Instructions .ROUTE .COMPLEX Qty: 84 3RF Dose Instruction: Take 1 tablet by mouth once daily Rx Instructions: Take 1 tablet by mouth once daily atorvastatin 20 mg tablet 20 mg PO .at bedtime Qty: 90 0RF losartan 50 mg tablet 50 mg PO DAILY Qty: 90 0RF Rx Instructions: Fill at patient's request Discharge Orders: Discharge ED (Routine); Ordered 02/25/23 Ordered By: Adebayo Pires Referrals: Lizzette Schulte DO [Primary Care Provider] - 1 week Patient Instructions: Hypertension, Chest Pain (ED) Activity Restrictions/Additional Instructions: The physical exam and lab work performed in the ER did not reveal any Cardiac causes of your chest pain. It is thought to be noncardiac in nature. Your blood pressure was higher than normal and you were given 1 additional dose of clonidine 0.1 mg. Please increase the frequency of the clonidine you have at home to 1 pill every 4-6 hours as needed for blood pressure greater than 150/95. Please follow-up with your family practice physician within the next 7 to 10 days and review your blood pressure during this time with them. As you may need medication changes. If your chest pain changes or worsens please feel free to return to the ER for further evaluation. Coding Level of Care Code ED Middle [employer] Combination Teacher for Kylie Manrique
[2023-02-25] MEDS: cloNIDine 0.1 mg Tablet PO (23:50)
[2023-02-26 00:34] VITALS: BP 126/74; PULSE 81; RESP 16; O2SAT 95
== END 2023-02-26 00:32 | disposition home or self-care (01) ==
PROVIDERS: Emergency Provider Emergency Medicine; PCP Family Medicine
DX: R07.89 Other chest pain (principal); I10 Essential (primary) hypertension
CPT/HCPCS: 36415; 71045; 80053; 84484; 85025; 93005; 99285

== ENCOUNTER → 2023-03-08 09:37 | Outpatient (BNVA) | payer SELFPAY | PROVIDERS: PCP Family Medicine | DX: E03.9 Hypothyroidism, unspecified (principal); Z01.89 Encounter for other specified special examinations | CPT/HCPCS: 84439 ==

== ENCOUNTER 2023-03-15 16:45 | Outpatient (CLI) | payer OTHER, SELFPAY | END 2023-03-15 16:46 | disposition home or self-care (01) | LOC: SLEEP 03-16 09:03 | PROVIDERS: PCP Family Medicine; Visit Provider Family Medicine | DX: G47.10 Hypersomnia, unspecified (principal); R06.83 Snoring; R53.83 Other fatigue | CPT/HCPCS: G0399 ==

== ENCOUNTER 2023-04-06 06:57 | Outpatient (CLI) | payer BC, SELFPAY ==
--- NOTE | 2023-04-06 07:15 | USCV_ITS ---
Joy Reich Age: 42 Gender: F : 1980 Exam Date: 04/06/2023 07:29 Ordering Phys: Adrián De La Rosa MD ([email or web address]) Technologist: MARGARET Exam Location: [facility] – [place] Indication: CHEST PAIN AND HTN BP: 144 / 91 HR: 67 Rhythm: Sinus Technical Quality: Adequate MEASUREMENTS (Male / Female) Normal Values 2D ECHO LVOT Diameter 2.0 cm LV Ejection Fraction MOD 2C 53.8 % LV Ejection Fraction 2C AL 53.0 % LA Diameter 3.4 cm LA Width 2.6 cm LA Height 4.8 cm RA Width 3.7 cm RA Height 4.9 cm Aorta at Sinotubular Diameter 2.5 cm IVC Diameter 1.5 cm M-MODE Aortic Annulus Diameter 2.5 cm LA Ao Ratio MM 1.2 MV E Point Septal Separation 1.0 cm DOPPLER AV Peak Velocity 127.0 cm/s LVOT Peak Velocity 117.0 cm/s AV Area Cont Eq vti 2.9 cm squared AV Area Cont Eq pk 3.0 cm squared MV Peak Velocity 99.0 cm/s MV Area PHT 3.5 cm squared Mitral E to A Ratio 1.3 MV E' Velocity 54.0 cm/s Mitral E to MV E' Ratio 8.0 Mitral E to LV E' Lateral Ratio 6.8 Mitral E to LV E' Septal Ratio 9.9 TR Peak Velocity 161.6 cm/s TR Peak Gradient 10.4 mmHg TR Mean Velocity 143.6 cm/s TR Mean Gradient 8.2 mmHg TR Velocity Time Integral 48.4 cm TV Peak E Velocity 60.0 cm/s Right Atrial Pressure 3.0 mmHg Pulmonary Artery Systolic Pressu 13.4 mmHg PV Peak Velocity 101.0 cm/s RV Acceleration Time 0.1 s RV Ejection Time 0.3 s RV AcT/ET 0.2 FINDINGS Left Ventricle Normal left ventricular size and systolic function, EF 56 %.no regional wall motion abnormalities. Right Ventricle The right ventricle is normal in size and function. Right Atrium The right atrium is normal in size. Left Atrium The left atrium is normal in size. Mitral Valve Trace to mild mitral valve regurgitation. Aortic Valve No gross abnormalities noted Tricuspid Valve No gross abnormalities noted Pulmonic Valve Pulmonic valve not well visualized. Pericardium Normal pericardium without effusion. Aorta Normal ascending aorta dimension. IVC The inferior vena cava appears normal. CONCLUSIONS Normal left ventricular size and systolic function, EF 56 %.no regional wall motion abnormalities. Trace to mild mitral valve regurgitation. Normal cardiac chamber sizes No intracardiac masses There is no pericardial effusion. No similar previous studies are available for comparison Dr Adrián De La Rosa MD FAC (Electronically Signed) Final Date: 08 April 2023 19:21 S
== END 2023-04-06 06:58 | disposition home or self-care (01) ==
PROVIDERS: PCP Family Medicine; Visit Provider Internal Medicine Cardiovascular Disease
DX: R06.09 Other forms of dyspnea (principal)
CPT/HCPCS: 93306

== ENCOUNTER → 2023-07-14 10:33 | Outpatient (BNVA) | payer BC, SELFPAY | PROVIDERS: PCP Family Medicine; Visit Provider Family Medicine | DX: E03.9 Hypothyroidism, unspecified (principal) | CPT/HCPCS: 84439; 84443 ==

== ENCOUNTER → 2023-09-22 11:51 | Outpatient (BNVA) | payer BC, SELFPAY | PROVIDERS: PCP Family Medicine; Visit Provider Family Medicine | DX: E78.5 Hyperlipidemia, unspecified (principal) | CPT/HCPCS: 80053; 80061 ==

== ENCOUNTER → 2023-10-21 08:27 | Outpatient (BNVA) | payer BC, SELFPAY | PROVIDERS: PCP Family Medicine | DX: E03.9 Hypothyroidism, unspecified (principal); E66.01 Morbid (severe) obesity due to excess calories; Z68.42 Body mass index [BMI] 45.0-49.9, adult; F41.1 Generalized anxiety disorder; I10 Essential (primary) hypertension | CPT/HCPCS: 84443; 84481 ==

== ENCOUNTER → 2023-11-08 07:47 | Outpatient (BNVA) | payer BC, SELFPAY | DX: Z01.419 Encounter for gynecological examination (general) (routine) without abnormal findings (principal) | CPT/HCPCS: 87624 ==

== ENCOUNTER 2023-11-30 12:54 | Outpatient (CLI) | payer BC, SELFPAY ==
--- NOTE | 2023-11-30 13:00 | MM_ITS ---
WS: [id number] BILATERAL 3D TOMOSYNTHESIS DIGITAL SCREENING MAMMOGRAPHY WITH CAD CLINICAL INFORMATION: screening HISTORY: Screening mammogram. No current complaints. COMPARISON: 2022 TECHNIQUE: Bilateral CC and MLO views. FINDINGS: Scattered fibroglandular densities bilaterally. No suspicious focal mass, asymmetry, calcifications, or architectural distortion. No evidence of malignancy. Stable subareolar nodularity RIGHT breast. MM/[place] [id number] IMPRESSION: DENSITY: There are scattered areas of fibroglandular density. BI-RADS: 2 - Benign. FOLLOW UP: 1 Year Follow-up Recommend return to annual screening mammography.
== END 2023-11-30 12:55 | disposition home or self-care (01) ==
LOC: RAD 12:54
DX: Z12.31 Encounter for screening mammogram for malignant neoplasm of breast (principal); R92.323 Mammographic fibroglandular density, bilateral breasts; N63.41 Unspecified lump in right breast, subareolar
CPT/HCPCS: 77063; 77067; 87624

== ENCOUNTER → 2023-12-09 09:22 | Outpatient (BNVA) | payer BC, SELFPAY | DX: E03.9 Hypothyroidism, unspecified (principal) | CPT/HCPCS: 84439; 84443 ==

== ENCOUNTER 2024-03-26 21:52 | Emergency (ER) | payer BC, SELFPAY ==
[2024-03-26 22:02] VITALS: BP 150/94; PULSE 80; RESP 16; TEMP 36.7; O2SAT 96; BMI 49.9
--- NOTE | 2024-03-26 22:20 | ECG_ITS ---
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 Measurements Intervals [place] Rate: 74 P: 28 [place]: 154 QRS: 13 QRSD: 81 T: 30 QT: 398 QTc: 444 Interpretive Statements SINUS RHYTHM LOW QRS VOLTAGE IN PRECORDIAL LEADS [QRS DEFLECTION < 1.0 mV IN CHEST LEADS] POSSIBLE RIGHT VENTRICULAR CONDUCTION DELAY [RSR (QR) IN V1/V2] Compared to ECG 02/25/2023 21:50:13 Myocardial infarct finding no longer present Electronically Signed On 03-27-2024 17:53:12 BRUSHER HAND by Adrián De La Rosa M.D. [id number]
--- NOTE | 2024-03-26 22:20 | ED_ITS ---
HPI - Recheck/Abnormal Lab/Rx 2 General: Chief Complaint: Recheck/Abnormal Lab/Rx Stated Complaint: b/p high Time Seen by Provider: 03/26/24 22:01 Source: patient Mode of arrival: ambulatory Limitations: no limitations History of Present Illness: Patient is a 43-year-old female who presents the emergency department complaining of high blood pressure. She states that she felt herself get hot at home took her blood pressure found to be 180/100. She states normally she is 130s/70s. Also states she takes losartan daily, but when her blood pressure gets high she is supposed to take a clonidine but could not find this. Denies any chest pain, but does state that her face got numb and that this has happened before when her blood pressure is gotten high. She is denying any visual changes, headache, chest pain, shortness of breath, palpitations, syncope, or other concerning symptoms. She has no history of renal disease. At this time blood pressure 150/94, not complaining of any symptoms. MD complaint: other (High blood pressure) Initial visit (ago): hour(s) Related Data Home Medications Medication Instructions Recorded Confirmed clonidine HCl 0.1 mg tablet 0.1 mg PO Q8H PRN 03/30/23 01/12/24 Previous Rx's Medication Instructions Recorded sertraline 50 mg tablet 50 mg PO DAILY #90 tabs 07/14/23 norgestimate-ethinyl estradiol See Rx Instructions .Route 10/31/23 0.18 mg/0.215mg/0.25mg-35 .COMPLEX #84 tabs mcg(28)tablet (Tri-Sprintec (28)) atorvastatin 20 mg tablet See Rx Instructions .Route 11/07/23 .COMPLEX #90 tabs levothyroxine 88 mcg tablet 88 mcg PO DAILY #30 tabs 12/15/23 fluconazole 150 mg tablet 150 mg PO Q3D 2 doses #2 tabs 01/12/24 nitrofurantoin 100 mg PO Q12H 7 days #14 caps 01/12/24 monohydrate/macrocrystals 100 mg capsule (Macrobid) losartan 50 mg tablet See Rx Instructions .Route 01/30/24 .COMPLEX #90 tabs sertraline 100 mg tablet 100 mg PO DAILY #90 tabs 02/05/24 Allergies Allergy/AdvReac Type Severity Reaction Status Date / Time exenatide [From By[place]] Allergy Intermediate ADR-Swelling Verified 01/12/24 15:49 of the Eye lisinopril Allergy ADR-Gastrointestinal Verified 01/12/24 15:49 Upset tramadol Allergy ALGY-Hives Verified 01/12/24 15:49 Review of Systems 2 General: Reports: 10 or more systems reviewed and unremarkable except in HPI and below Const: Denies: fever(s), chills or fatigue Eyes: Denies: change in vision ENMT: Denies: throat pain, ear or mastoid pain or nasal discharge Card: Reports: other (High blood pressure); Denies: chest pain, palpitations, swelling of feet/ankles or lightheadedness Resp: Denies: dyspnea, productive cough or wheezing GI: Denies: abdominal pain, nausea, vomiting, diarrhea or constipation : Denies: flank pain, difficulty voiding, dysuria or urinary frequency Musc: Denies: neck pain, back pain or joint pain Skin/Breast: Denies: rash Neuro: Reports: other (Facial numbness); Denies: headache(s) or weakness in extremities PFSH ED 2 PFSH: Medical History History of kidney stones Acquired hypothyroidism Surgical History No pertinent past surgical history Family History Father , Accidental . No problems noted. Mother Diabetes Hypertension Grandmother Cancer colon Denies family history of Colon cancer Ovarian cancer Thyroid cancer Heart disease Hyperlipidemia Breast cancer Uterine cancer Stroke Social History Smoking and tobacco/nicotine status: never used tobacco/nicotine Second hand smoke exposure: No Alcohol intake: current Alcohol intake frequency: holidays/special occasions only Substance/Drug Use: never Adopted: No Lives independently: Yes Marital status: Single Number of children: 0 service: No Current occupational exposures/hazards: No Physical Exam 2 Const: COMMON NORMALS: no acute distress and no limitations GENERAL APPEARANCE: cooperative, comfortable and well developed O RIENTATION/CONSCIOUSNESS: Yes awake HENMT: COMMON NORMALS: normocephalic, atraumatic and hearing grossly normal bilaterally HEAD & SCALP: normocephalic and atraumatic Eye: COMMON NORMALS: Equal, round and reactive pupils present, EOMs intact bilaterally and conjunctivae normal CONJUNCTIVA: Yes conjunctivae normal P UPIL: Yes Equal, round and reactive pupils present Neck/C-Spine: COMMON NORMALS: full ROM, supple and no JVD Resp: COMMON NORMALS: normal respiratory effort, No retractions, No use of accessory muscles and clear to auscultation bilaterally AUSCULTATION: clear to auscultation bilaterally Cardio: COMMON NORMALS: no JVD, regular rate, regular rhythm, No clicks present (Cardio), No murmurs present (Cardio) and No rub (Cardio) RATE: r egular rate RHYTHM: regular rhythm Extremity: COMMON NORMALS: normal to inspection, full ROM and capillary refill normal Skin: COMMON NORMALS: no rashes or lesions noted GENERAL SKIN EXAM: no rashes or lesions noted Course 2 Vital Signs: Vital signs: Vital Signs Temperature 98.1 F 03/26/24 22:02 Pulse Rate 82 03/26/24 23:14 Respiratory Rate 16 03/26/24 22:02 Blood Pressure 121/68 03/26/24 23:14 Pulse Oximetry 96 03/26/24 23:14 Oxygen Delivery Me thod Room Air 03/26/24 22:02 MDM - Recheck/Abnormal Lab/Rx Medical Decision Making Patient had presented with concerns of elevated blood pressure, cannot find her clonidine at home that she takes as needed. Had reported feeling hot at onset of blood pressure, also some facial numbness. Was asymptomatic at time of exam. When I began my examination her blood pressure was 150 systolic, however dropped as low as 121/68 prior to discharge. In addition her lab work was all normal, EKG normal. Patient sent home with 1 clonidine to take as needed if her blood pressure gets high again, however she is going to follow-up with primary care to get her prescription refilled. She is comfortable with discharge home, return precautions given. Lab Data 03/26/24 22:17 03/26/24 22:17 Laboratory Results WBC 8.81 10^3/uL (3.29-11.43) 03/26/24 22:17 RBC 4.67 10^6/uL (3.85-5.65) 03/26/24 22:17 Hgb 14.80 g/dL (11.27-16.99) 03/26/24 22:17 Hct 45.7 % (36-47) 03/26/24 22:17 MCV 97.9 fl (85-98) 03/26/24 22:17 MCH 31.7 pg (27-33) 03/26/24 22:17 MCHC 32.4 g/dL (30-55) 03/26/24 22:17 RDW 11.8 % (12.1-15.1) L 03/26/24 22:17 Plt Count 212 10^3/cmm (157-399) 03/26/24 22:17 MPV 9.0 fL (7.4-10.4) 03/26/24 22:17 Neut % (Auto) 64.5 % 03/26/24 22:17 Lymph % (Auto) 24.6 % 03/26/24 22:17 Guthrie % (Auto) 7.9 % 03/26/24 22:17 Eos % (Auto) 2.2 % 03/26/24 22:17 Baso % (Auto) 0.5 % 03/26/24 22:17 Neut # (Auto) 5.68 10^3/uL (1.8-7.7) 03/26/24 22:17 Lymph # (Auto) 2.2 10^3/uL (0.8-4.8) 03/26/24 22:17 Guthrie # (Auto) 0.7 10^3/uL (0.2-0.9) 03/26/24 22:17 Eos # (Auto) 0.2 10^3/uL (0.0-0.8) 03/26/24 22:17 Baso # (Auto) 0.0 10^3/uL (0.0-0.1) 03/26/24 22:17 Nucleated RBC % (auto) 0 % 03/26/24 22:17 Nucleated RBCs # 0.0 /100WBC 03/26/24 22:17 Sodium 138 mmol/L (136-145) 03/26/24 22:17 Potassium 4.0 mmol/L (3.5-5.1) 03/26/24 22:17 Chloride 105 mmol/L (98-107) 03/26/24 22:17 Carbon Dioxide 20 mmol/L (22-29) L 03/26/24 22:17 Anion Gap 17.0 (5-19) 03/26/24 22:17 BUN 13 mg/dL (6-20) 03/26/24 22:17 Creatinine 0.7 mg/dL (0.5-0.9) 03/26/24 22:17 GFR Calculation 91.8 mL/min (90-130) 03/26/24 22:17 Glucose 141 mg/dL (65-115) H 03/26/24 22:17 Calculated Osmolality 288 mOsm/kg (285-295) 03/26/24 22:17 Calcium 8.8 mg/dL (8.5-10.5) 03/26/24 22:17 Total Bilirubin 0.2 mg/dL (0.15-1.2) 03/26/24 22:17 AST 16 U/L (0-32) 03/26/24 22:17 ALT 27 U/L (0-33) 03/26/24 22:17 Alkaline Phosphatase 79 U/L (35-105) 03/26/24 22:17 Total Protein 6.4 g/dL (6.6-8.7) L 03/26/24 22:17 Albumin 3.7 g/dL (3.5-5.2) 03/26/24 22:17 Globulin 2.7 g/dL (1.3-4.6) 03/26/24 22:17 Urine Color Yellow (Yellow) 03/26/24 22:27 Urine Appearance Cloudy (CLEAR) A 03/26/24 22: Urine pH 5.5 (5-7) 03/26/24 22:27 Ur Specific [place] 1.012 (1.005-1.030) 03/26/24 22:27 Urine Protein Negative (Negative) 03/26/24 22: Urine Glucose (UA) Negative (Normal) 03/26/24 22: Urine Ketones Negative (Negative) 03/26/24: Urine Blood Trace (Negative) A 03/26/24 22: Urine Nitrate Negative (Negative) 03/26/24 22: Urine Bilirubin Negative (Negative) 03/26/24 22: Urine Urobilinogen 0.2 mg/dL (Negative) 03/26/24 22: Ur Leukocyte Esterase Negative (Negative) 03/26/24 22:27 Urine RBC 0-2 /hpf (0-2) 03/26/24 22:27 Urine WBC 6-10 /hpf (0-5) 03/26/24 22:27 Ur Squamous Epith Cells 11-20 /hpf (0-5) 03/26/24 22:27 Amorphous Sediment Not Reportable 03/26/24 22:27 Urine Bacteria 2+ /hpf (NONE) H 03/26/24 22:27 Hyaline Casts 0.40 /lpf 03/26/24 22:27 No radiology studies performed this visit EKG Data EKG 1: I personally reviewed and interpreted this EKG as follows: EKG interpretation date: 03/26/24 EKG interpretation time: 22:21 Interpretation: NSR. Rate 74. No acute STEMI. no significant change from prior on 01/2023. Discharge Plan Discharge Patient Disposition: Home Clinical Impression: Benign essential HTN Condition: Stable Prescriptions: No Action clonidine HCl 0.1 mg tablet 0.1 mg PO Q8H PRN Rx Instructions: For BP > 160/100 fluconazole 150 mg tablet 150 mg PO Q3D Qty: 2 0RF Rx Instructions: may repeat second dose 72 hrs after first dose if symptoms persist nitrofurantoin monohyd/m-cryst [Macrobid] 100 mg capsule 100 mg PO Q12H 7 Days Qty: 14 0RF Rx Instructions: must administer with a meal/food sertraline 50 mg tablet 50 mg PO DAILY Qty: 90 1RF Hold Instructions: Home Medication placed on hold at Doctor's office Rx Instructions: Take with 100 mg dose norgestimate-ethinyl estradiol [Tri-Sprintec (28)] 0.18/0.215/0.25 mg-35 mcg (28) tablet See Rx Instructions .ROUTE .COMPLEX Qty: 84 3RF Dose Instruction: Take 1 tablet by mouth once daily Rx Instructions: Take 1 tablet by mouth once daily atorvastatin 20 mg tablet See Rx Instructions .ROUTE .COMPLEX Qty: 90 3RF Dose Instruction: TAKE 1 TABLET BY MOUTH AT BEDTIME Rx Instructions: TAKE 1 TABLET BY MOUTH AT BEDTIME levothyroxine 88 mcg tablet 88 mcg PO DAILY Qty: 30 2RF losartan 50 mg tablet See Rx Instructions .ROUTE .COMPLEX Qty: 90 0RF Dose Instruction: Take 1 tablet by mouth once daily Rx Instructions: Take 1 tablet by mouth once daily sertraline 100 mg tablet 100 mg PO DAILY Qty: 90 1RF Discharge Orders: Discharge ED (Routine); Ordered 03/26/24 Ordered By: Dante Burgess Referrals: Rufina Muro NP [Primary Care Provider] - Patient Instructions: Hypertension (ED) Activity Restrictions/Additional Instructions: Continue taking your losartan. Sent home with clonidine to take as needed. Please follow-up with your primary care provider. Return with any new or worsening. Coding Level of Care Code ED Senior Data Mining Analyst for Kylie Manrique
[2024-03-26 22:37] VITALS: BP 159/98; PULSE 77; O2SAT 96
[2024-03-26 22:40] LABS: Bilirubin Urine Negative (Negative); Blood Urine Trace (Negative); Glucose Urine UA Negative (Normal); Ketones Urine Negative (Negative); Leukocyte Esterase Urine Negative (Negative); Nitrate Urine Negative (Negative); Protein Urine Negative (Negative); Specific Gravity, Urine 1.012 (1.005-1.030); Urine Appearance Cloudy (CLEAR); Urine Color Yellow (Yellow); Urobilinogen Urine 0.2 mg/dL (Negative); pH Urine 5.5 (5-7)
[2024-03-26 22:45] LABS: Add Urine Microscopic? YES; Bacteria Urine 2+ /hpf; RBC Urine 0-2 /hpf (0-2)
[2024-03-26 22:52] LABS: Basophils % 0.5 %; Eosinophils # 0.2 10^3/uL (0.0-0.8); Eosinophils % 2.2 %; Hematocrit 45.7 % (36-47); Lymphocytes # 2.2 10^3/uL (0.8-4.8); Lymphocytes % 24.6 %; Mean Corpuscular HGB Conc 32.4 g/dL (30-55); Mean Corpuscular Hemoglobin 31.7 pg (27-33); Mean Corpuscular Volume 97.9 fl (85-98); Monocytes # 0.7 10^3/uL (0.2-0.9); Monocytes % 7.9 %; Neutrophils # 5.68 10^3/uL (1.8-7.7); Neutrophils % 64.5 %; Nucleated Red Blood Cells % 0 %; Platelet Count 212 10^3/cmm (157-399); Red Blood Count 4.67 10^6/uL (3.85-5.65); Red Cell Distribution Width 11.8 % (12.1-15.1); White Blood Count 8.81 10^3/uL (3.29-11.43)
[2024-03-26 22:55] VITALS: BP 126/77; PULSE 78; O2SAT 97
[2024-03-26 23:08] LABS: Alanine Aminotransferase 27 U/L (0-33); Albumin Level 3.7 g/dL (3.5-5.2); Alkaline Phosphatase 79 U/L (35-105); Aspartate Amino Transferase 16 U/L (0-32); Blood Urea Nitrogen 13 mg/dL (6-20); Calcium 8.8 mg/dL (8.5-10.5); Carbon Dioxide 20 mmol/L (22-29); Chloride 105 mmol/L (98-107); Creatinine Clr Calc Pharmacy 146.4877; Globulin 2.7 g/dL (1.3-4.6); Glomerular Filtration Rate 91.8 mL/min (90-130); Glucose 141 mg/dL (65-115); Osmolality Calculated 288 mOsm/kg (285-295); Sodium 138 mmol/L (136-145); Total Bilirubin 0.2 mg/dL (0.15-1.2); Total Protein 6.4 g/dL (6.6-8.7)
[2024-03-26 23:14] VITALS: BP 121/68; PULSE 82; O2SAT 96
[2024-03-26] MEDS: cloNIDine 0.1 mg Tablet PO (23:18)
[2024-03-26 23:21] VITALS: BP 122/88; PULSE 75; O2SAT 97
== END 2024-03-26 23:25 | disposition home or self-care (01) ==
PROVIDERS: Emergency Provider Physician Assistant
DX: I10 Essential (primary) hypertension (principal)
CPT/HCPCS: 36415; 80053; 81001; 85025; 93005; 99284

== ENCOUNTER → 2024-04-23 08:52 | Outpatient (BNVA) | payer BC, SELFPAY | DX: E03.9 Hypothyroidism, unspecified (principal); R39.9 Unspecified symptoms and signs involving the genitourinary system; E66.01 Morbid (severe) obesity due to excess calories; Z68.42 Body mass index [BMI] 45.0-49.9, adult; E78.5 Hyperlipidemia, unspecified; F41.1 Generalized anxiety disorder; I10 Essential (primary) hypertension | CPT/HCPCS: 80053; 81000; 83036; 84403; 84439; 84443 ==

== ENCOUNTER 2025-03-17 12:09 | Emergency (ER) | payer BC, SELFPAY ==
--- OUTSIDE RECORDS SUMMARY | 2025-03-17 12:15 | XMS_ITS | Data Portability ---
Author Organization [facility] Nitesh Valdovinos [facility] [place] [facility] Address [address] [place] [address] Assessment Encounter Date Assessment Date Assessment LastModified by Organization Details LastModified Time 11/23/2022 11/23/2022 Declined COVID testing. Strep negative. Increase fluids and rest as needed. Viral and will need to run its course, likely 7-10 days. Meds as prescribed. May use vicks, humidification, honey and nasal/sinus rinse PRN for congestion sx. Tylenol vs. IBU PRN. Patient verbalizes understanding and agreement with this plan of care. Will call with any questions or concerns. [email or web address] Not available 11/23/2022 11:26:48 Plan of Treatment Reminders Order Date Submit Date Provider Last Modified By Organization Details Last Modified Time Details Appointments None recorded. Lab rapid strep group A, throat 2022 023 [email or web address] [facility] ([facility]), [address] [place], [address], 3 11:21:47 Referral None recorded. Procedures None recorded. Surgeries None recorded. Imaging None recorded. Medication Orders promethazin e-DM 6.25 mg-15 mg/5 mL oral syrup 2022 023 [facility], [address], [place], [address], 3 11:22:48 prednisone 20 mg tablet 2022 023 [facility], [address], [place], [address], 11:22:49 lisinopril 10 mg tablet 2022 023 [facility], [address], [place], [address], 10:23:13 Patient TargetsNo targets recorded. Patient InstructionsNo instructions recorded. Reason for Referral None Reported. Results Created Date Observation Date Name Description Value Unit Range Abnormal Flag Note LastModifiedBy Organization Detail LastModifiedTime 11/24/1911/23/2022 rapid strep group A, throa t Strep negati ve Not Available [facility] ([facility]) [address] [place], [address], 11/23/2022 10:53:56 Result Notes None recorded. Medical Equipment None Reported. 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 ; Promo zohaib; Signi fican ce: *; Reaso n: Drug aller gy; ; JOBY DOSHI, MELANIA [address] [place], [address], [facility], [facility] 10:52:55 41058 Substance with sulfonami de structure and antibacte rial mechanism of action (substanc e) medicatio n Not available Not available Not available 10/23/2022 63252 8003 SNOMED Comme nt: Recor ded 01/20 7:44A 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 2022 active Not Available Not Available Not Avai lable ondansetron HCl 4 mg tablet TAKE 1 TABLET BY MOUTH EVERY 8 HOURS FOR 5 DAYS active Not Available Not Available No t Available prednisone 20 mg tablet Days 1-2: 2 tabs. Days 3-4: 1 tab. Days 5-6: 0.5 tab 2022 active Not Available Not Available Not Avai lable Euthyrox 100 mcg tablet TAKE 1 TABLET BY MOUTH ONCE DAILY active Not Available Not Available No t Available pantoprazole 40 mg tablet,delay ed release TAKE 1 TABLET BY MOUTH ONCE DAILY active Not Available Not Available No t Available lisinopril 10 mg tablet Take 1 tablet every day by oral route for 30 days. 2022 active Not Available Not Available Not Avai lable Tri-Sprintec (28) 0.18 mg(7)/0.215 mg(7)/0.25 mg(7)-0.035 mg tablet TAKE 1 TABLET BY MOUTH ONCE DAILY active Not Available Not Available No t Available Euthyrox qd active 0; Recorded 2 7:44AM by Shannon Rodriguez LPN, Office Visit; Not Available Not Available Not Available Ortho Tri-Cyclen LO (28) qd active 0; Recorded 2 7:44AM by Shannon Rodriguez LPN, Office Visit; Not Available Not Available Not Available Vitals Date Recorded Body height Body mass index (BMI) Body weight Oxygen saturation Heart rate Body temperature Systolic And Diastolic Provider Name and Address Organization Details Last Updated DateTime 3 165.1 cm 44.6 kg/m2 461554. 76 g 97 % 72 /min 97.8 [degF] 150/100 mm[Hg] NIA BROO[facility] Luis BonillaC. 3 09:57:46 Date Recorded Body height Body weight Body mass index (BMI) Oxygen saturation Heart rate Respiratory rate Body temperature Provider Name and Address Organization Details Last Updated DateTime 3 165.1 cm 368762. 79 g 48.3 kg/m2 9 % 98 /min 20 /min 97.8 [degF] JAHAIRA BENITEZ [facility], [place] 3 10:27:03 Social History None recorded. Functional Status None recorded. Mental Status None recorded. Family History Nothing Reported. Medical History No medical history recorded. Gynecological HistoryNo gynecological history recorded. Obstetrics History GPAL:G 0 P 0 0 0 0 Past Encounters Encounter ID Performer Location Encounter Start Date Encounter Closed Date Diagnosis/Indication Diagnosis SNOMED-CT Code Diagnosis ICD10 Code Diagnosis IMO Codes Diagnosis Note [id number] AGATHA GAITAN [facility] ([facility]) [address] [place] [phone] 09/27/2022 09:44:22 09/27/2022 13:01:03 Essential hypertension 89437040 I10 Will start lisinopril 10mg tablet daily today. Discussed risks/bene fits of medication today. Discussed side effects including persistant cough and encouraged patient to reach out to PCP if this occurs. Patient reports she has had a tubal and reports there is no chance of today. Encouraged patient to keep log of morning and night blood pressures until seen by PCP next week. Discussed with patient that if she develops APARICIO, SOB, or chest pain, she needs to go to the ED. BP 150/100 today. Patient verbalizes understand ing. [id number] MELANIA GAGE [facility] ([facility]) [address] [place] [phone] 11/23/2022 10:19:48 12/01/2022 12:02:19 Acute pharyngitis 794922391 J02.9 Viral uppe r respiratory tract infection 147075265 J06.9 Health Concerns Section Related Observation LastModified by Organization Detai ls LastModified Time None Recorded Concern Status LastModified by Organization Details LastModified Time None Recorded Advance Directives Directive None Recorded Payers Insurance Date Sequence Insurance Name Policy Number Policy Quintana Covered Member ID Quintana Member ID Guarantor Name 12/01/2022 1 [facility] [id number] Joy L Damir [id number] Joy Gustavo Damir Notes Date Note Type Note Provider Name and Address Organization Details Recorded Time 09/27/2022 text/html Hypertension IM/FMReported by PatientHPIFor severity, patient reportsstage 2 (>140/>90 mmhg)but reportsmoderate. For quality, patient reportsnew onset symptoms. For onset/timing, patient reportsabrupt onset. For aggravating factors, patient reportsweight change. For associated symptoms, patient reportsno shortness of breath,no fatigue,no palpitations,no headaches, andno chest pain.ROS as noted in the HPI Patient is a 42 year old female who presents to the walk in clinic today for elevated BP. Patient was seen in the ED 5 days ago for elevated BP and patient states the ED gave her clonidine to bring the BP down but did not start her on any BP medications. Patient reports several years ago she was on lisinopril for BP, however, when she lost weight, she no longer needed the medication and it was discontinued. Patient has a follow up appointment with her PCP next week but expresses concerns because her BP has been running 160s/100s at home for the past 5 days. Denies any APARICIO, dizziness, or chest pain. Duran Stahl DO [address] [place], [address], [facility], [place] 10/04/2022 08:47:26 11/23/2022 text/html Ear Pain Brief HPIReported by PatientHPIFor quality, patient reportssharp pain. For associated symptoms, patient reportssense of fullness/pressureand sore throat. For location, patient reportsleft. For onset/timing, patient reportsstarted 2days agoandconstant pain. For severity, patient reportsno fever. For context, (sick contacts -- family with strep.).Sore throat, ear pain, mild cough, headache, nausea and fatigue.ROS as noted in the HPI PATIENT REPORTS HEADACHE, SORE THROAT, CHILLS, AND LEFT EAR PAIN. Declined testing for COVID and strep at triage. MELANIA GAGE [address] [place], [address], [facility], [place] 11/23/2022 11:27:00 OBGyn Episode No OBEpisode recorded.
[2025-03-17 12:17] VITALS: BP 163/108; PULSE 95; RESP 17; TEMP 36.5; O2SAT 96; BMI 55.5
--- NOTE | 2025-03-17 12:21 | W.ED.GENADLT ---
HPI - General Adult General: Chief complaint: Neuro Symptoms/Deficit Stated complaint: Pain in R side of neck R side of mouth drooping Time Seen by Provider: 03/17/25 12:16 Source: patient Mode of arrival: ambulatory Limitations: no limitations History of Present Illness: 44-year-old female states that roughly an hour ago she noticed that she was having right sided facial droop. Patient does have significant facial droop states she had a hard time closing her eye or moving her right lip. She denies any headache states that she did have a pimple on the back of the right side of her head that does cause some slight pain but denies any headache. She denies slurred speech denies any weakness Related Data Previous Rx's ?Medication ?Instructions ?Recorded sertraline 50 mg tablet 50 mg PO DAILY #90 tabs 07/14/23 Held on 01/12/24. Instructions: Home Medication placed on hold at Doctor's office norgestimate-ethinyl estradiol See Rx Instructions .Route 10/31/23 0.18mg/0.215mg/0.25mg-0.035mg(28)tablet .COMPLEX #84 tabs (Tri-Sprintec (28)) atorvastatin 20 mg tablet See Rx Instructions .Route 11/07/23 .COMPLEX #90 tabs clonidine HCl 0.1 mg tablet 0.1 mg PO Q8H PRN hypertensive 03/29/24 emergency #30 tabs levothyroxine 88 mcg tablet 88 mcg PO DAILY #30 tabs 04/02/24 sertraline 100 mg tablet 100 mg PO DAILY #90 tabs 08/21/24 losartan 50 mg tablet See Rx Instructions .Route 09/26/24 .COMPLEX #90 tabs prednisone 50 mg tablet 50 mg PO DAILY #5 tabs 03/17/25 Allergies Allergy/AdvReac Type Severity Reaction Status Date / Time exenatide (From [place]) Allergy Intermediate ADR-Swelling Verified 04/23/24 08:28 of the Eye lisinopril Allergy ADR-Gastrointestinal Verified 04/23/24 08:28 Upset tramadol Allergy ALGY-Hives Verified 04/23/24 08:28 PENDING SALE TO [facility] ED PFSH: Medical History History of kidney stones Acquired hypothyroidism Surgical History No pertinent past surgical history Family History Father , Accidental . No problems noted. Mother Diabetes Hypertension Grandmother Cancer colon Denies family history of Colon cancer Ovarian cancer Thyroid cancer Heart disease Hyperlipidemia Breast cancer Uterine cancer Stroke Social History Smoking and tobacco/nicotine status: never used tobacco/nicotine Second hand smoke exposure: No Alcohol intake: current Alcohol intake frequency: holidays/special occasions only Substance/Drug Use: never Adopted: No Lives independently: Yes Marital status: Single Number of children: 0 service: No Current occupational exposures/hazards: No Physical Exam Const: COMMON NORMALS: no acute distress, patient oriented x3 and healthy appearing HENMT: COMMON NORMALS: normocephalic and atraumatic HEAD & SCALP: normocephalic and atraumatic Eye: COMMON NORMALS: Equal, round and reactive pupils present and EOMs intact bilaterally PUPIL: Yes Equal, round and reactive pupils present Neck/C-Spine: COMMON NORMALS: full ROM and supple Chest: COMMONS NORMALS: normal inspection of the chest Resp: COMMON NORMALS: normal respiratory effort, No retractions, No use of accessory muscles and clear to auscultation bilaterally AUSCULTATION: clear to auscultation bilaterally Cardio: COMMON NORMALS: regular rate, regular rhythm and No murmurs present (Cardio) RATE: regular rate RHYTHM: regular rhythm Extremity: COMMON NORMALS: normal to inspection and full ROM Neuro: COMMON NORMALS: patient oriented x3 and moves all extremities SPEECH: speech normal GAIT: Yes Normal gait present MOTOR EXAM: 5/5 motor strength present throughout OTHER: Right sided facial droop Psych: COMMON NORMALS: mental status grossly normal, Normal thought process present and cooperative THOUGHT PROCESS: Normal thought process present Skin: COMMON NORMALS: no rashes or lesions noted and no wounds GENERAL SKIN EXAM: no rashes or lesions noted Course Vital Signs: Vital signs: Vital Signs Temperature 97.7 F 03/17/25 12:17 Pulse Rate 95 03/17/25 12:17 Respiratory Rate 17 03/17/25 12:17 Blood Pressure 163/108 03/17/25 12:17 Pulse Oximetry 96 03/17/25 12:17 Oxygen Delivery Me thod Room Air 03/17/25 12:17 MDM - General Adult Medical Decision Making Patient presents here with right sided facial droop differential includes Stover's palsy, CVA. 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 Will place her on prednisone did inform her that she needs to use artificial tears likely needs to tape her eye shut at night to watch out for her eye drying out. She is to follow-up with her PCP and return if worsening she understands agrees to plan. No radiology studies performed this visit Discharge Plan Discharge Patient Disposition: Home Clinical Impression: Stover's palsy Condition: Stable Prescriptions: New prednisone 50 mg tablet 50 mg PO DAILY Qty: 5 0RF No Action sertraline 50 mg tablet 50 mg PO DAILY Qty: 90 1RF Rx Instructions: Take with 100 mg dose norgestimate-ethinyl estradiol [Tri-Sprintec (28)] 0.18/0.215/0.25 mg-35 mcg (28) tablet See Rx Instructions .ROUTE .COMPLEX Qty: 84 3RF Dose Instruction: Take 1 tablet by mouth once daily Rx Instructions: Take 1 tablet by mouth once daily atorvastatin 20 mg tablet See Rx Instructions .ROUTE .COMPLEX Qty: 90 3RF Dose Instruction: TAKE 1 TABLET BY MOUTH AT BEDTIME Rx Instructions: TAKE 1 TABLET BY MOUTH AT BEDTIME clonidine HCl 0.1 mg tablet 0.1 mg PO Q8H PRN (Reason: hypertensive emergency) Qty: 30 1RF Rx Instructions: For BP > 160/100 levothyroxine 88 mcg tablet 88 mcg PO DAILY Qty: 30 2RF sertraline 100 mg tablet 100 mg PO DAILY Qty: 90 1RF losartan 50 mg tablet See Rx Instructions .ROUTE .COMPLEX Qty: 90 0RF Dose Instruction: TAKE 1 TABLET BY MOUTH EVERY DAY Rx Instructions: TAKE 1 TABLET BY MOUTH EVERY DAY Discharge Orders: Discharge ED (Routine); Ordered 03/17/25 Ordered By: Tanja Esteves Referrals: Rufina Muro NP [Primary Care Provider, Family Practice] - 4-7 days Discharge Diet: Advance as tolerated Discharge Activity: Resume usual activity Patient Instructions: Stover Palsy (ED) Print Language: [place] Coding Level of Care Code ED Regional Marketing Director for Kylie Manrique NIH stroke score NIHSS Level Of Consciousness - 1a: 0 Level Of Consciousness Questions - 1b: Both Correct Level Of Consciousness Commands - 1c: Both Correct Best Gaze - 2: Normal Visual Patten - 3: No Visual Loss Facial Palsy - 4: Partial Paralysis Motor Arm Right - 5: No Drift Motor Arm Left - 5: No Drift Motor Leg Right - 6: No Drift Motor Leg Left - 6: No Drift Limb Ataxia - 7: Absent Sensory - 8: Normal Best Language - 9: No Aphasia Dysarthia - 10: Normal Extinction And Inattention - 11: 0 Score Total Score: 2
[2025-03-17 12:49] VITALS: BP 173/114; PULSE 90; O2SAT 96
== END 2025-03-17 12:50 | disposition home or self-care (01) ==
PROVIDERS: Emergency Provider Emergency Medicine
DX: G51.0 Bell's palsy (principal)
CPT/HCPCS: 99283